=== PATIENT | female | born 1990 | race Caucasian/White ===

== ENCOUNTER 2020-01-22 00:10 | Emergency (ER) | payer SELFPAY ==
[~2020-01-22] VITALS: Ht 160 cm; Wt 63.2 kg
[2020-01-22 00:17] VITALS: BP 160/65
[2020-01-22] MEDS ORDERED: NACL 0.9% 1,000 ML IV SCH (00:31)
[2020-01-22] MEDS ORDERED: KETOROLAC 30 MG/ML VIAL IVP ONE (00:35)
[2020-01-22] MEDS ORDERED: ONDANSETRON 4 MG/2 ML VIAL IVP ONE (00:35)
--- NOTE | 2020-01-22 00:50 | NUR ---
US AT BEDSIDE.
[2020-01-22 00:53] LABS: APPEARANCE,URINE CLEAR (CLEAR); BILIRUBIN,URINE 1+ (NEGATIVE); BLOOD, URINE NEGATIVE (NEGATIVE); COLOR,URINE YELLOW (YELLOW); LEUKOCYTE ESTERASE ,URINE TRACE (NEGATIVE); NITRITE, URINE NEGATIVE (NEGATIVE); UGLUCOSE NEGATIVE (NEGATIVE)
[2020-01-22 00:56] LABS: BASOPHILS # (AUTO) 0.1 K/uL (0.00-0.22); BASOPHILS % (AUTO) 0.5 % (0.0-2.0); EOSINOPHILS # (AUTO) 0.1 K/uL (0-0.4); EOSINOPHILS % (AUTO) 0.5 % (0.0-4.0); HEMATOCRIT 41.8 % (36-48); HEMOGLOBIN 14.2 g/dL (12.0-16.0); LYMPHOCYTES # (AUTO) 2.4 K/uL (2.5-16.5); LYMPHOCYTES % (AUTO) 22.1 % (20.5-51.1); MEAN CORPUSCULAR HEMOGLOBIN 31 pg (27-31); MEAN CORPUSCULAR HGB CONC 34 g/dL (33-37); MEAN CORPUSCULAR VOLUME 90.6 fL (80-94); MONOCYTES # (AUTO) 0.5 K/uL (0.8-1.0); NEUTROPHILS # (AUTO) 7.9 K/uL (1.8-7.7); NEUTROPHILS % (AUTO) 71.9 % (42.2-75.2); PLATELET COUNT (AUTO) 236 K/uL (140-450); RED BLOOD CELL COUNT(AUTO) 4.61 MIL/uL (4.20-5.40); RED CELL DISTRIBUTION WIDTH 12.5 % (11.6-13.7)
[2020-01-22 01:08] LABS: ALBUMIN 4.5 g/dL (3.4-5.0); ANION GAP 13.8 (8-16); CARBON DIOXIDE 25.5 mmol/L (21-32); CREATININE 0.8 mg/dL (0.6-1.3); POTASSIUM 3.3 mmol/L (3.5-5.1); TOTAL BILIRUBIN 0.9 mg/dL (0.0-1.0)
[2020-01-22 01:10] LABS: RBC,URINE 11-20 (MOD) /HPF (0-5); WBC,URINE 0-5 /HPF (0-5)
--- NOTE | 2020-01-22 01:18 | NUR ---
Dr. Zaidi examining patient.
--- NOTE | 2020-01-22 01:20 | NUR ---
29 YO F BIB SELF FOR C/C OF 9/10 INTERMITTENT SHARP RLQ PAIN X2 DAYS. PT STATES SHE HAS BEEN NAUSEOUS WITH NO VOMITING. LBM WAS 3 DAYS AGO, SOFT AND FORMED. STATES SHE HAD BURNING ON URINATION YESTERDAY THAT HAS SINCE RESOLVED. BS NORMOACTIVE THROUGHOUT. DENIES FEVER, COUGH, SOB AND TRAVEL. PT HAS BEEN TAKING OTC TYLENOL WITH NO RELIEF OF PAIN. BED LOCKED AND IN LOWEST POSITION. NKA NO MED HX NO RX
--- NOTE | 2020-01-22 01:50 | NUR ---
IV removed, catheter intact and site benign. Applied folded 4x4 gauze and tape to stop bleeding.
[2020-01-22 01:52] VITALS: BP 148/72
--- NOTE | 2020-01-22 01:52 | NUR ---
Patient discharged with v/s stable. Written and verbal after care instructions given and explained. Patient alert, oriented and verbalized understanding of instructions. Ambulatory with steady gait. All questions addressed prior to discharge. ID band removed. Patient advised to follow up with PMD. Rx of ZOFRAN, MOTRIN, NORCO 5/325 given. Patient educated on indication of medication including possible reaction and side effects. Opportunity to ask questions provided and answered.
== END 2020-01-22 01:52 | disposition home or self-care (01) ==
LOC: MED 00:10
DX: R10.11 Right upper quadrant pain (principal); R30.0 Dysuria; R11.0 Nausea
CPT/HCPCS: 36415; 76705; 80053; 81001; 81025; 83690; 85025; 96361; 96374; 96375; 99284; J1885; J2405; J7030; Q0092